=== PATIENT | female | born 1950 | race African-American/Black ===

== ENCOUNTER 2017-03-28 19:02 | Emergency (ER) | payer MEDICAID, OTHER ==
[~2017-03-28] VITALS: Ht 160 cm; Wt 68.2 kg
[2017-03-28] MEDS ORDERED: BACL10TA PO (19:26)
[2017-03-28] MEDS ORDERED: ALPR0.255 PO (19:26)
[2017-03-28 21:17] VITALS: BP 151/98
[2017-03-28] MEDS ORDERED: ACETAMINOPHEN/CODEINE 300-30 MG TABLET PO ONE (21:30)
== END 2017-03-28 22:49 | disposition home or self-care (01) ==
LOC: EMS 19:03
DX: S62.001A Unspecified fracture of navicular [scaphoid] bone of right wrist, initial encounter for closed fracture (principal); V47.5XXA Car driver injured in collision with fixed or stationary object in traffic accident, initial encounter; Y93.89 Activity, other specified; Y92.511 Restaurant or cafe as the place of occurrence of the external cause; Y99.8 Other external cause status
CPT/HCPCS: 99284